=== PATIENT | male | born 1980 | race Caucasian/White ===

== ENCOUNTER 2017-10-26 11:44 | Emergency (ER) | payer MEDICAID ==
[~2017-10-26] VITALS: Ht 160 cm; Wt 89.3 kg
[2017-10-26 12:15] VITALS: Ht 160 cm; Wt 89.3 kg
[2017-10-26 13:46] VITALS: BP 148/98
== END 2017-10-26 13:46 | disposition home or self-care (01) ==
LOC: ED 11:44
DX: H60.92 Unspecified otitis externa, left ear (principal); I10 Essential (primary) hypertension